=== PATIENT | female | born 1960 | race Caucasian/White ===

== ENCOUNTER 2018-11-18 06:20 | Day surgery (SDC) | payer OTHER ==
[~2018-11-18 06:20] MED LIST: ZESTRIL10 M1 PO
[2018-11-18] MEDS ORDERED: ULTRACET PO (11:11)
[2018-11-18] MEDS ORDERED: MACROBID 100 M100 MG PO (11:11)
== END 2018-11-18 13:35 | disposition home or self-care (01) ==
LOC: CIR.AMB 06:20
DX: N39.3 Stress incontinence (female) (male) (principal)
CPT/HCPCS: 57288; C1771